=== PATIENT | female | born 1985 | race Caucasian/White ===

== ENCOUNTER 2019-12-24 05:47 | Observation (INO) ==
[2019-12-24] MEDS ORDERED: ONDANSETRON 4 MG/2 ML VIAL IV ONE ×3 (06:03→13:15)
[2019-12-24] MEDS ORDERED: LACTATED RINGERS 1,000 ML IV ONE (06:05)
[2019-12-24] MEDS ORDERED: diphenhydrAMINE 50 MG/ML VIAL IV ONE ×3 (06:45→13:15)
[2019-12-24] MEDS: HYDROmorphone 2 MG/ML VIAL IV PRN ×8 (06:50→22:00)
[2019-12-24 07:16] LABS: Basophils # (Auto) 0.04 K/mcL (0.00-0.30); Basophils % (Auto) 0.7 % (0.0-2.0); Eosinophils # (Auto) 0.17 K/mcL (0.00-0.70); Granulocytes % (Auto) 45.6 % (38.0-78.0); Hematocrit 46.6 % (34.1-44.9); Lymphocytes # (Auto) 2.59 K/mcL (1.50-4.80); Mean Cell Volume 90.1 fL (80.0-100.0); Mean Corpuscular HGB Conc 32.2 g/dL (31.0-36.0); Mean Platelet Volume 12.2 fL (7.4-10.4); Monocytes # (Auto) 0.33 K/mcL (0.10-0.90); Monocytes % (Auto) 5.7 % (1.0-12.0); Platelet Count 151 K/mcL (140-440); RBC 5.17 M/mcL (3.59-5.38); Red Cell Distribution Width 13.3 % (11.5-14.5); WBC 5.8 K/mcL (4.50-11.00)
--- NOTE | 2019-12-24 07:22 | Emergency Department Note ---
Abdominal Pain HPI - General Chief Complaint: Abdominal Pain Stated Complaint: nausea, vomiting, abd pain Time Seen by Provider: 12/24/19 07:09 Source: patient Mode of arrival: ambulatory Limitations: no limitations - History of Present Illness HPI Narrative: This patient has had right upper quadrant pain for 5 days associated with nausea and vomiting. She had an ultrasound here 2 days ago which showed cholelithiasis without evidence of cholecystitis. She was treated and improved little bit in the ER but despite that is continued to have pain nausea and vomiting. This patient also carries a diagnosis of acute intermittent porphyria. She says she was diagnosed with in 2013 but I do not see lab confirmation in our records. She also says her grandmother has had positive testing in the past. MD Complaint: abdominal pain Onset (ago): day(s) Consistency: constant Location: RUQ Quality: stabbing Radiation: back Improves with: nothing Worsens with: nothing - Related Data Previous Rx's Medication Instructions Recorded HYDROcodone/APAP 5/325MG [[place] 1 tab PO Q4HP PRN #10 tab 12/22/19 5-325Mg] Ondansetron [Zofran ODT] 4 mg SL Q4-6HP PRN #10 tab 12/22/19 Allergies Allergy/AdvReac Type Severity Reaction Status Date / Time azithromycin [AZITHROMYCIN] Allergy Severe Rash Verified 12/24/19 05:51 NSAIDS (Non-Steroidal Allergy Severe Rash Verified 12/24/19 05:51 Anti-Inflamma [NSAIDS] sumatriptan [SUMATRIPTAN] Allergy Severe Shortness Verified 12/24/19 05:51 of Breath codeine Allergy Unknown UNKNOWN Verified 12/24/19 05:51 tramadol Allergy Unknown Unknown Verified 12/24/19 05:51 droperidol [From INAPSINE] AdvReac Severe Anxiety/TAC Verified 12/24/19 05:51 HYCARDIA prochlorperazine AdvReac Intermediate ANXIOUS Verified 12/24/19 05:51 [PROCHLORPERAZINE] doxycycline AdvReac Mild Nausea Verified 12/24/19 05:51 hydrocodone [HYDROCODONE] AdvReac Mild NAUSEA Verified 12/24/19 05:51 morphine [MORPHINE] AdvReac Mild GI UPSET Verified 12/24/19 05:51 Review of Systems All systems ED: reviewed and negative except as stated. Abdominal Pain PMH - Past Medical History Medical history: Reports: kidney stones, migraine, other (Intermittent porphria) Psychiatric history: Reports: anxiety [employer] history: Reports: non-contributory Family history: Reports: other - Social History Smoking status: Never smoker Alcohol use: Reports: None Drug use: Reports: none Physical Exam Limitations: no limitations General appearance: alert Head: atraumatic Eye: Present: normal appearance ENT: Present: normal exam Neck: Present: normal inspection Chest: Present: normal inspection Respiratory: Present: normal lung sounds bilaterally Cardiovascular: Present: regular rate, normal rhythm, normal heart sounds Abdominal: Present: soft, tenderness. Absent: distention, guarding, rebound Abdominal tenderness: Present: RUQ, moderate Neurological: Present: alert Psychiatric: Present: normal affect Skin: Present: warm, dry Course Vital Signs Temperature 97.7 F 12/24/19 05:48 Pulse Rate 64 12/24/19 05:48 Respiratory Rate 20 12/24/19 05:48 Blood Pressure 140/66 12/24/19 05:48 Pulse Oximetry (%) 99 12/24/19 05:48 Temperature 97.7 F 12/24/19 05:48 Pulse Rate 80 12/24/19 08:28 Respiratory Rate 20 12/24/19 05:48 Blood Pressure 115/77 12/24/19 08:01 Pulse Oximetry (%) 100 12/24/19 08:28 Abdominal Pain - [facility] Narrative Medical decision making narrative: Patient's lab work is still unremarkable as far as white count and liver function and gallbladder testing. A flare of porphyria would explain her symptoms perhaps better than cholelithiasis. She has failed outpatient treatment and continues have nausea vomiting and pain. She should probably be admitted. Am currently waiting to talk to the hospitalist. I did talk with Dr. Cristobal and we will admit the patient his service and Dr. Gonsalez will see the patient as well. - Lab Data Lab results reviewed: Yes I reviewed the patient's lab results. Result diagrams: 12/24/19 06:21 12/24/19 07:25 Lab Results 12/24/19 12/24/19 12/24/19 Range/Units 06:21 06:21 06:28 WBC 5.8 (4.50-11.00) K/mcL RBC 5.17 (3.59-5.38) M/mcL Hgb 15.0 (11.2-15.7) g/dL Hct 46.6 H (34.1-44.9) % MCV 90.1 (80.0-100.0) fL MCH 29.0 (26.0-34.0) pg MCHC 32.2 (31.0-36.0) g/dL RDW 13.3 (11.5-14.5) % Plt Count 151 (140-440) K/mcL MPV 12.2 H (7.4-10.4) fL Gran % 45.6 (38.0-78.0) % Lymph % (Auto) 45.0 (15.5-49.0) % [place] % (Auto) 5.7 (1.0-12.0) % Eos % (Auto) 3.0 (0.0-7.0) % Baso % (Auto) 0.7 (0.0-2.0) % Gran # 2.62 (1.80-8.00) K/mcL Lymph # (Auto) 2.59 (1.50-4.80) K/mcL [place] # (Auto) 0.33 (0.10-0.90) K/mcL Eos # (Auto) 0.17 (0.00-0.70) K/mcL Baso # (Auto) 0.04 (0.00-0.30) K/mcL Sodium TNP Potassium TNP Chloride TNP Carbon Dioxide TNP Anion Gap TNP BUN TNP Creatinine TNP GFR Calculation TNP Glucose TNP Calcium TNP Total Bilirubin TNP AST TNP ALT TNP Alkaline Phosphatase TNP Total Protein TNP Albumin TNP Globulin TNP Albumin/Globulin Ratio TNP Lipase TNP Urine Color Yellow Urine Appearance Hazy Urine pH 5.0 (5.0-9.0) Ur Specific [place] 1.018 (1.000-1.035) Urine Protein Neg (NEG) mg/dL Urine Glucose (UA) Negative (NEG) mg/dL Urine Ketones Neg (NEG) mg/dL Urine Occult Blood 0.03 A (<0.03) mg/dL Urine Nitrate Neg (NEG) Urine Bilirubin Neg (NEG) mg/dL Urine Urobilinogen Neg (NEG) mg/dL Ur Leukocyte Esterase 75 A (NEG) /uL Urine RBC 1 (0-1) /hpf Urine WBC 9 H (0-4) /hpf Ur Squamous Epith Cells 7 H (0-4) /hpf Amorphous Crystals Few A (0) /hpf Urine Bacteria Many A (0) /hpf Hyaline Casts 3 H (0-2) /lpf Urine Mucus Few (0) /hpf Ur Culture Indicated? No 12/24/19 Range/Units 07:25 WBC (4.50-11.00) K/mcL RBC (3.59-5.38) M/mcL Hgb (11.2-15.7) g/dL Hct (34.1-44.9) % MCV (80.0-100.0) fL MCH (26.0-34.0) pg MCHC (31.0-36.0) g/dL RDW (11.5-14.5) % Plt Count (140-440) K/mcL MPV (7.4-10.4) fL Gran % (38.0-78.0) % Lymph % (Auto) (15.5-49.0) % [place] % (Auto) (1.0-12.0) % Eos % (Auto) (0.0-7.0) % Baso % (Auto) (0.0-2.0) % Gran # (1.80-8.00) K/mcL Lymph # (Auto) (1.50-4.80) K/mcL [place] # (Auto) (0.10-0.90) K/mcL Eos # (Auto) (0.00-0.70) K/mcL Baso # (Auto) (0.00-0.30) K/mcL Sodium 138 Potassium 3.9 Chloride 101 Carbon Dioxide 23 Anion Gap 14.0 BUN 14 Creatinine 0.7 GFR Calculation 115 Glucose 92 Calcium 9.1 Total Bilirubin 0.4 AST 16 ALT 13 Alkaline Phosphatase 36 L Total Protein 7.1 Albumin 4.2 Globulin 2.9 Albumin/Globulin Ratio 1.4 Lipase 18 Urine Color Urine Appearance Urine pH (5.0-9.0) Ur Specific [place] (1.000-1.035) Urine Protein (NEG) mg/dL Urine Glucose (UA) (NEG) mg/dL Urine Ketones (NEG) mg/dL Urine Occult Blood (<0.03) mg/dL Urine Nitrate (NEG) Urine Bilirubin (NEG) mg/dL Urine Urobilinogen (NEG) mg/dL Ur Leukocyte Esterase (NEG) /uL Urine RBC (0-1) /hpf Urine WBC (0-4) /hpf Ur Squamous Epith Cells (0-4) /hpf Amorphous Crystals (0) /hpf Urine Bacteria (0) /hpf Hyaline Casts (0-2) /lpf Urine Mucus (0) /hpf Ur Culture Indicated? Disposition Pt seen by [employer]/PA only: No Clinical Impression: Nausea & vomiting, Abdominal pain, History of porphyria Disposition: Xfer As Outpt/Obs ([facility]) Condition: Good Referrals: No,PCP [Primary Care Provider] - Time of Disposition: 08:57
[2019-12-24] MEDS ORDERED: METOCLOPRAMIDE 10 MG/2 ML VIAL IV ONE (07:32)
[2019-12-24 07:45] LABS: Appearance,Urine HAZY; Bacteria,Urine MANY /hpf (0); Bilirubin,Urine NEG (NEG); Color,Urine YELLOW; Culture Indicated,Urine NO; Glucose,Urine (UA) NEGATIVE (NEG); Ketones,Urine NEG (NEG); Leukocyte Esterase,Urine 75 /uL (NEG); Mucus,Urine FEW /hpf (0); Nitrate,Urine NEG (NEG); Protein,Urine NEG (NEG); Specific Gravity,Urine 1.018 (1.000-1.035); Urine Amorphous Crystals FEW /hpf (0); Urine Blood 0.03 mg/dL (<0.03); Urine Hyaline Cast 3 /lpf (0-2); Urine RBC 1 /hpf (0-1); Urine Squamous Epithelial Cell 7 /hpf (0-4); Urine WBC 9 /hpf (0-4); Urobilinogen,Urine NEG (NEG)
[2019-12-24 08:13] LABS: ALT/SGPT 13 U/l (0-40); AST/SGOT 16 U/l (0-37); Albumin 4.2 gm/dL (3.2-5.2); Albumin/Globulin Ratio 1.4 (1.0-2.3); Alkaline Phosphatase 36 U/L (39-117); Bilirubin,Total 0.4 mg/dL (0.0-1.0); Blood Urea Nitrogen 14 mg/dl (6-20); Calcium 9.1 mg/dl (8.6-10.4); Carbon Dioxide 23 mmol/L (22-30); Chloride 101 mmol/L (96-108); Globulin 2.9 gm/dL (2.2-3.7); Glomerular Filtration Rate 115; Glucose 92 mg/dL (70-105)
[2019-12-24] MEDS ORDERED: ONDANSETRON 4 MG/2 ML VIAL IV PRN ×2 (10:39→16:28)
[2019-12-24] MEDS ORDERED: HYDROmorphone 2 MG/ML VIAL IV PRN (10:40)
[2019-12-24] MEDS ORDERED: IPRATROPIUM/ALBUTEROL 3 ML AMPUL.NEB NEB PRN ×2 (12:41→14:32)
--- NOTE | 2019-12-24 12:42 | General Surg History&Physical ---
History of Present Illness Patient information: Note initiated : 12/24/19 at 12:40 pm Service Date, if different from initiated Date: [] Patient: Vick Herron a 34 y/o F admitted on 12/24/19 for nausea, vomiting, abd pain. Chief Complaint: [] HPI: Ms. Herron is a 34 year old F with history of recurrent right quadrant pain with nausea and vomiting since Friday. The pain has been constant since onset and has radiated through to her back on the right side. She has had other abdominal pain previously but not in the right upper quadrant or epigastric region and not associated with nausea and vomiting. Patient had upper abdominal ultrasound which confirms gallstones. This study was done on 22 December. She had continued symptoms since then. Her LFTs are normal and her urine is normal. Patient is counseled for laparoscopic cholecystectomy. Patient has a history of acute intermittent porphyria, but has not had a significant major tach documented. Her urines have been negative. She has had umbilical hernia surgery and hysterectomy without any exacerbation. Review of Systems All systems PM: reviewed and no additional remarkable complaints except as stated (except as noted above and in review of system below) - Constitutional as per HPI, headache(s) - Gastrointestinal abdominal pain, cramping, nausea, vomiting - Genitourinary Genitourinary: dysuria, flank pain, hematuria, urinary frequency, other (, history of UTIs associated with kidney stones) - Musculoskeletal back pain (, chronic thoracic and lumbar back pain) - Neurological no numbness, no tingling, no weakness - Endocrine as per HPI - Hematologic/Lymphatic no easy bleeding, no easy bruising, no lymphadenopathy Past History Past medical history: History of acute intermittent porphyria. History of kidney stones. He History chronic anxiety Past surgical history: Umbilical hernia surgery 2013. Hysterectomy 1999 Past family history: 4. Esophageal cancer Past social history: Denies tobacco use. Uses alcohol frequently. Denies drug use Medications and Allergies Home Medications Medication Instructions Recorded Confirmed Type HYDROcodone/APAP 5/325MG [[place] 1 tab PO Q4HP PRN #10 tab 12/22/19 12/24/19 Rx 5-325Mg] Ondansetron [Zofran ODT] 4 mg SL Q4-6HP PRN #10 tab 12/22/19 12/24/19 Rx Allergies Allergy/AdvReac Type Severity Reaction Status Date / Time sumatriptan [SUMATRIPTAN] Allergy Severe Shortness Verified 12/24/19 05:51 of Breath azithromycin [AZITHROMYCIN] Allergy Mild Rash Verified 12/24/19 12:46 NSAIDS (Non-Steroidal Allergy Mild Rash Verified 12/24/19 12:46 Anti-Inflamma [NSAIDS] codeine Allergy Unknown UNKNOWN Verified 12/24/19 05:51 tramadol Allergy Unknown Unknown Verified 12/24/19 05:51 droperidol [From INAPSINE] AdvReac Intermediate Anxiety/TAC Verified 12/24/19 12:46 HYCARDIA prochlorperazine AdvReac Intermediate ANXIOUS Verified 12/24/19 05:51 [PROCHLORPERAZINE] doxycycline AdvReac Mild Nausea Verified 12/24/19 05:51 hydrocodone [HYDROCODONE] AdvReac Mild NAUSEA Verified 12/24/19 05:51 morphine [MORPHINE] AdvReac Mild GI UPSET Verified 12/24/19 05:51 Exam Temp Pulse Resp BP Pulse Ox 97.7 F 65 20 109/71 100 12/24/19 11:11 12/24/19 11:11 12/24/19 11:11 12/24/19 11:11 12/24/19 11:11 - General physical appearance well developed, well nourished, no distress, moderate pain, other (patient is very anxious) - Eyes PERRL, normal ocular movement - ENT normal pinna, normal nares, normal mucosa, no hearing loss, no congestion - Head Head exam IM: Present: atraumatic, normocephalic - Neck no masses, no bruits, trachea midline, no lymphadenopathy, no venous distension - Cardiovascular Cardiovascular exam IM: Present: normal rate and rhythm, RRR, +S1, +S2. Absent: JVD, tachycardia - Respiratory normal expansion, normal respiratory effort, clear to percussion, clear to auscultation - Abdomen Abdomen: Present: soft, tender ( quadrant tenderness with guarding; epigastric), bowel sounds Hernia: Present: none - Genitourinary Present: normal external genitalia - Integumentary Present: no rash, no growths, no abnormal pigmentation - Neurologic Present: normal coordination, normal sensation - Musculoskeletal Present: normal gait, normal posture - Psychiatric Present: oriented to time, oriented to person, oriented to place, speech is normal, memory intact, other (chronic anxiety) Assessment and Plan (1) Cholelithiasis and cholecystitis without obstruction Patient is counseled for laparoscopic cholecystectomy and will be done later Status: Acute (2) Intermittent acute porphyria syndrome Patient has not had a recent attack and she's had surgery without difficulty in the past Status: Acute (3) Chronic low back pain Status: Acute
[2019-12-24] MEDS ORDERED: GLYCOPYRROLATE 0.2 MG/ML VIAL IV ONE (13:15)
[2019-12-24] MEDS ORDERED: KETAMINE 100 MG/ML ML IV ONE (13:15)
[2019-12-24] MEDS ORDERED: LIDOCAINE HCL/PF 100 MG/5 ML SYRINGE IV ONE (13:15)
[2019-12-24] MEDS ORDERED: FAMOTIDINE/PF 20 MG/2 ML VIAL IV ONE (13:15)
[2019-12-24] MEDS ORDERED: SUCCINYLCHOLINE 20 MG/ML ML IV ONE (13:15)
[2019-12-24] MEDS ORDERED: HYDROmorphone 2 MG/ML VIAL IV ONE (13:15)
[2019-12-24] MEDS ORDERED: ROCURONIUM 10 MG/ML ML IV ONE (13:15)
[2019-12-24] MEDS ORDERED: MIDAZOLAM 5 MG/5 ML VIAL IV ONE (13:15)
[2019-12-24] MEDS ORDERED: DEXAMETHASONE 10 MG/ML VIAL IV ONE (13:15)
[2019-12-24] MEDS ORDERED: fentaNYL 100 MCG/2 ML VIAL IV ONE (13:15)
[2019-12-24] MEDS ORDERED: MAGNESIUM SULFATE 2 GM/50 ML BAG IV ONE ×2 (13:15→13:51)
[2019-12-24] MEDS ORDERED: SUGAMMADEX SODIUM 200 MG/2 ML VIAL IV ONE (13:15)
[2019-12-24] MEDS ORDERED: PROPOFOL 200 MG/20 ML VIAL IV ONE (13:15)
[2019-12-24] MEDS ORDERED: ceFAZolin 2 GM in DEXTROSE 5% IN WATER 50 ML IV SCH ×2 (13:45→16:28)
[2019-12-24] MEDS ORDERED: NALOXONE HCL 0.4 MG/ML VIAL IV PRN (14:32)
[2019-12-24] MEDS ORDERED: MEPERIDINE 50 MG/ML INJECTION IM PRN (14:32)
[2019-12-24] MEDS ORDERED: PROMETHAZINE 25 MG/ML VIAL IV PRN (14:32)
[2019-12-24] MEDS ORDERED: BENZOCAINE/MENTHOL 1 LOZENGE PO PRN (14:32)
[2019-12-24] MEDS ORDERED: LACTATED RINGERS 250 ML IV PRN (14:32)
[2019-12-24] MEDS ORDERED: ACETAMINOPHEN 1,000 MG/100 ML BOTTLE IV ONE (14:32)
[2019-12-24] MEDS ORDERED: PROMETHAZINE 25 MG/ML VIAL IM PRN (14:32)
[2019-12-24] MEDS ORDERED: LABETALOL 5 MG/ML ML IV PRN (14:32)
[2019-12-24] MEDS ORDERED: METOPROLOL TARTRATE 5 MG/5 ML VIAL IV PRN (14:32)
[2019-12-24] MEDS ORDERED: FLUMAZENIL 0.1 MG/ML ML IV PRN (14:32)
[2019-12-24] MEDS ORDERED: METHOCARBAMOL 1,000 MG/10 ML VIAL IV PRN (14:32)
[2019-12-24] MEDS ORDERED: LACTATED RINGERS 1,000 ML IV SCH (14:45)
--- NOTE | 2019-12-24 14:50 | Brief Operative Note ---
Date of procedure: 12/24/19 Pre-op diagnosis: cholelithiasis with cholecystitis Post-op diagnosis: other (cholelithiasis with cholecystitis) Procedure: open cholecystectomy Grafts/Implants: No Anesthesia: GETA Findings: dilated gallbladder with stones Complications: none Surgeon: Any Cristobal Estimated blood loss (cc): 15 Specimens Removed/Pathology: other (gallbladder) Condition: stable Disposition: PACU
[2019-12-24] MEDS: fentaNYL 100 MCG/2 ML VIAL IV PRN ×10 (15:27→15:58)
[2019-12-24] MEDS: ONDANSETRON 4 MG/2 ML VIAL IV PRN (17:10)
[2019-12-24] MEDS: PANTOPRAZOLE 40 MG VIAL IV SCH (17:10)
[2019-12-24] MEDS: 0.9 % SODIUM CHLORIDE 1,000 ML IV SCH (17:12)
[2019-12-24] MEDS: LORazepam 1 MG TABLET PO PRN (19:37)
[2019-12-24] MEDS: ACETAMINOPHEN 1,000 MG/100 ML BOTTLE IV SCH (20:30)
[2019-12-24] MEDS: PROMETHAZINE 25 MG/ML VIAL IV PRN (22:58)
[2019-12-25] MEDS: HYDROmorphone 2 MG/ML VIAL IV PRN ×7 (01:22→19:00)
[2019-12-25] MEDS: LORazepam 1 MG TABLET PO PRN ×4 (01:23→21:25)
[2019-12-25] MEDS: 0.9 % SODIUM CHLORIDE 1,000 ML IV SCH (03:07)
[2019-12-25] MEDS: ACETAMINOPHEN 1,000 MG/100 ML BOTTLE IV SCH ×3 (03:07→16:31)
[2019-12-25] MEDS: ONDANSETRON 4 MG/2 ML VIAL IV PRN (05:57)
[2019-12-25] MEDS: PANTOPRAZOLE 40 MG VIAL IV SCH ×2 (07:43→16:21)
[2019-12-25 07:44] LABS: Bilirubin,Direct < 0.2 mg/dL (0.0-0.3); Chloride 99 mmol/L (96-108)
[2019-12-25 07:55] LABS: ALT/SGPT 24 U/l (0-40); AST/SGOT 29 U/l (0-37); Albumin 3.8 gm/dL (3.2-5.2); Albumin/Globulin Ratio 1.2 (1.0-2.3); Alkaline Phosphatase 36 U/L (39-117); Bilirubin,Total 0.5 mg/dL (0.0-1.0); Blood Urea Nitrogen 8 mg/dl (6-20); Calcium 8.6 mg/dl (8.6-10.4); Carbon Dioxide 17 mmol/L (22-30); Globulin 3.3 gm/dL (2.2-3.7); Glomerular Filtration Rate 121; Glucose 87 mg/dL (70-105); Lactate Dehydrogenase 218 U/L (94-250); Phosphorous 4.3 mg/dL (2.7-4.5); Triglycerides 66 mg/dl (<150); Uric Acid 3.6 mg/dL (2.5-8.0)
[2019-12-25] MEDS: PROMETHAZINE 25 MG/ML VIAL IV PRN ×3 (07:58→21:25)
[2019-12-25 08:00] LABS: Basophils # (Auto) 0.03 K/mcL (0.00-0.30); Basophils % (Auto) 0.3 % (0.0-2.0); Eosinophils # (Auto) 0 K/mcL (0.00-0.70); Eosinophils % (Auto) 0 % (0.0-7.0); Granulocytes % (Auto) 75.2 % (38.0-78.0); Hematocrit 40.5 % (34.1-44.9); Hemoglobin 12.9 g/dL (11.2-15.7); Lymphocytes # (Auto) 1.96 K/mcL (1.50-4.80); Lymphocytes % (Auto) 18.4 % (15.5-49.0); Mean Cell Volume 93.5 fL (80.0-100.0); Mean Corpuscular HGB Conc 31.9 g/dL (31.0-36.0); Mean Platelet Volume 11.4 fL (7.4-10.4); Monocytes # (Auto) 0.65 K/mcL (0.10-0.90); Monocytes % (Auto) 6.1 % (1.0-12.0); Platelet Count 177 K/mcL (140-440); RBC 4.33 M/mcL (3.59-5.38); Red Cell Distribution Width 13.3 % (11.5-14.5); WBC 10.7 K/mcL (4.50-11.00)
--- NOTE | 2019-12-25 11:46 | General Surgery Progress Note ---
Subjective Patient reports: feels better, still having pain, pain is less, tolerating liquids well, flatus, afebrile Narrative: Note initiated : 12/25/19 at 11:44 am Service Date, if different from initiated Date: [] Patient: Vick Herron 34 y/o F admitted on 12/24/19 for nausea, vomiting, abd pain. Chief Complaint: [patient states that she feels much better. Her incisional pain is better. She is able to tolerate diet without difficulty. She denies nausea. White blood count 10.7, hemoglobin 12.9, hematocrit 40.5, BUN 8, creatinine 0.6, LFTs normal.] Objective Temp Pulse Resp BP Pulse Ox 98.7 F 76 14 125/69 95 12/25/19 09:42 12/25/19 04:00 12/25/19 04:00 12/25/19 04:00 12/25/19 04:00 - Additional Data Intake & Output - Last 24 hours: Intake & Output 12/23/19 12/24/19 12/25/19 12/26/19 05:59 05:59 05:59 05:59 Intake Total 4292 100 Output Total 1405 550 Balance 2887 -450 Weight 150 lb 151 lb - General physical appearance moderate distress, moderate pain - Eyes PERRL, normal ocular movement - ENT normal pinna, normal nares, normal mucosa, no hearing loss, no congestion - Neck no masses, no bruits, trachea midline, no lymphadenopathy, no venous distension - Respiratory normal expansion, normal respiratory effort, clear to auscultation - Cardiovascular Cardiovascular exam: Present: normal rate and rhythm, RRR, +S1, +S2. Absent: JVD, tachycardia - Abdomen tender (moderately severe incisional tenderness), bowel sounds (present), surgical scars (none), masses (none), distended (. Mild distention) - Integumentary no rash, no growths, no abnormal pigmentation - Neurologic normal coordination, normal sensation - Musculoskeletal normal gait, normal posture - Psychiatric oriented to time, oriented to person, oriented to place, speech is normal, memory intact - Labs 12/25/19 05:58 12/25/19 05:58 Diabetes panel 12/25/19 Range/Units 05:58 Sodium 133 (133-145) mmol/L Potassium 4.7 (3.3-5.1) mmol/L Chloride 99 (96-108) mmol/L Carbon Dioxide 17 L (22-30) mmol/L BUN 8 (6-20) mg/dl Creatinine 0.6 (0.6-1.1) mg/dl Glucose 87 (70-105) mg/dL Calcium 8.6 (8.6-10.4) mg/dl AST 29 (0-37) U/l ALT 24 (0-40) U/l Alkaline Phosphatase 36 L (39-117) U/L Total Protein 7.1 (5.9-8.4) gm/dL Albumin 3.8 (3.2-5.2) gm/dL Triglycerides 66 (<150) mg/dl Calcium panel 12/25/19 Range/Units 05:58 Calcium 8.6 (8.6-10.4) mg/dl Phosphorus 4.3 (2.7-4.5) mg/dL Albumin 3.8 (3.2-5.2) gm/dL Pituitary panel 12/25/19 Range/Units 05:58 Sodium 133 (133-145) mmol/L Potassium 4.7 (3.3-5.1) mmol/L Chloride 99 (96-108) mmol/L Carbon Dioxide 17 L (22-30) mmol/L BUN 8 (6-20) mg/dl Creatinine 0.6 (0.6-1.1) mg/dl Glucose 87 (70-105) mg/dL Calcium 8.6 (8.6-10.4) mg/dl Adrenal panel 12/25/19 Range/Units 05:58 Sodium 133 (133-145) mmol/L Potassium 4.7 (3.3-5.1) mmol/L Chloride 99 (96-108) mmol/L Carbon Dioxide 17 L (22-30) mmol/L BUN 8 (6-20) mg/dl Creatinine 0.6 (0.6-1.1) mg/dl Glucose 87 (70-105) mg/dL Calcium 8.6 (8.6-10.4) mg/dl Total Bilirubin 0.5 (0.0-1.0) mg/dL AST 29 (0-37) U/l ALT 24 (0-40) U/l Alkaline Phosphatase 36 L (39-117) U/L Total Protein 7.1 (5.9-8.4) gm/dL Albumin 3.8 (3.2-5.2) gm/dL Assessment and Plan (1) Cholelithiasis and cholecystitis without obstruction Status: Resolved Assessment and plan: Saline lock IV. Regular diet. Trial of oral oxycodone. Probable discharge in the morning Current Visit: Yes (2) Intermittent acute porphyria syndrome Status: Acute Current Visit: Yes (3) Chronic low back pain Status: Acute Current Visit: Yes - Time Spent With Patient Total time spent is greater than 50% in coordination of care (as documented) at patient's floor/unit and/or counseling patient:
[2019-12-25] MEDS: oxyCODONE HCL 5 MG TABLET PO PRN ×3 (12:18→22:08)
[2019-12-25] MEDS ORDERED: diphenhydrAMINE 25 MG CAPSULE PO PRN (15:56)
[2019-12-25] MEDS: POLYETHYLENE GLYCOL 3350 17 GM PACKET PO SCH (21:24)
[2019-12-26] MEDS: HYDROmorphone 2 MG/ML VIAL IV PRN ×6 (01:36→13:35)
[2019-12-26] MEDS: LORazepam 1 MG TABLET PO PRN ×2 (01:37→11:41)
[2019-12-26] MEDS: oxyCODONE HCL 5 MG TABLET PO PRN ×3 (03:05→11:40)
[2019-12-26] MEDS: ONDANSETRON 4 MG/2 ML VIAL IV PRN (04:59)
[2019-12-26 06:47] LABS: Basophils # (Auto) 0.03 K/mcL (0.00-0.30); Basophils % (Auto) 0.5 % (0.0-2.0); Eosinophils # (Auto) 0.18 K/mcL (0.00-0.70); Eosinophils % (Auto) 3.1 % (0.0-7.0); Granulocytes % (Auto) 48.9 % (38.0-78.0); Hematocrit 36.8 % (34.1-44.9); Hemoglobin 11.9 g/dL (11.2-15.7); Lymphocytes % (Auto) 39.7 % (15.5-49.0); Mean Cell Volume 91.5 fL (80.0-100.0); Mean Corpuscular HGB Conc 32.3 g/dL (31.0-36.0); Mean Platelet Volume 11.3 fL (7.4-10.4); Monocytes # (Auto) 0.45 K/mcL (0.10-0.90); Monocytes % (Auto) 7.8 % (1.0-12.0); Platelet Count 158 K/mcL (140-440); RBC 4.02 M/mcL (3.59-5.38); Red Cell Distribution Width 13.6 % (11.5-14.5); WBC 5.8 K/mcL (4.50-11.00)
[2019-12-26 07:13] LABS: Bilirubin,Direct < 0.2 mg/dL (0.0-0.3); Chloride 105 mmol/L (96-108)
[2019-12-26] MEDS: PANTOPRAZOLE 40 MG VIAL IV SCH (07:13)
[2019-12-26 07:18] LABS: ALT/SGPT 17 U/l (0-40); AST/SGOT 25 U/l (0-37); Albumin 3.5 gm/dL (3.2-5.2); Albumin/Globulin Ratio 1.3 (1.0-2.3); Alkaline Phosphatase 31 U/L (39-117); Bilirubin,Total 0.3 mg/dL (0.0-1.0); Blood Urea Nitrogen 11 mg/dl (6-20); Calcium 8.2 mg/dl (8.6-10.4); Carbon Dioxide 21 mmol/L (22-30); Globulin 2.7 gm/dL (2.2-3.7); Glomerular Filtration Rate 121; Glucose 83 mg/dL (70-105); Lactate Dehydrogenase 197 U/L (94-250); Phosphorous 3.6 mg/dL (2.7-4.5); Triglycerides 75 mg/dl (<150); Uric Acid 3.9 mg/dL (2.5-8.0)
[2019-12-26] MEDS: PROMETHAZINE 25 MG/ML VIAL IV PRN (09:36)
[2019-12-26] MEDS: POLYETHYLENE GLYCOL 3350 17 GM PACKET PO SCH (09:36)
--- NOTE | 2019-12-26 12:17 | Discharge Summary ---
Providers - Providers Patient information: Note initiated : 12/26/19 at 12:12 pm Service Date, if different from initiated Date: [] Patient: Vick Herron 34 y/o F admitted on 12/24/19 for nausea, vomiting, abd pain. Chief Complaint: [] Date of admission: 12/24/19 Discharge date: 12/26/19 Attending physician: Any Cristobal Hospitalization Hospital Course: 34-year-old fe with a 72 hour history of right subcostal and epigastric pain with associated nausea, vomiting. She was seen in the emergency room on December With similar symptoms and was treated as an outpatient. She returned with worsening pain, nausea, vomiting. Ultrasound confirmed cholelithiasis. She had right subcostal pain with guarding and epigastric pain. Patient is admitted. She was counseled for cholecystectomy. During cholecystectomy. I was unable to gain access to the peritoneal cavity above or below the umbilicus due to previous mesh repair of incisional hernia. A mini laparotomy was done in the right subcostal region with open cholecystectomy performed. The procedure was carried out without difficulty. In the postoperative period she had severe abdominal pain control. Her Discharge was delayed. Today she still has moderate pain but should be able to manage with oral analgesics and antiemetics. She is tolerating diet at this time and is stable for discharge. The patient has history of acute intermittent porphyria. She did not have any signs or symptoms of exacerbation during this hospitalization Discharge diagnosis: cholelithiasis with cholecystitis Secondary discharge diagnosis: Acute intermittent porphyria. Chronic anxiety disorder Reason for admission: abdominal pain, nausea and vomiting Procedures: Open cholecystectomy. 24 December 2019 Pertinent studies/significant findings: Upper abdominal ultrasound Complications: None Exam Temp Pulse Resp BP Pulse Ox 98.2 F 84 26 H 126/81 100 12/26/19 07:35 12/26/19 07:35 12/26/19 07:35 12/26/19 07:35 12/26/19 07:35 - General physical appearance well developed, well nourished, moderate distress, moderate pain - Eyes PERRL, normal ocular movement. negative: icteric - ENT normal pinna, normal nares, normal mucosa, no hearing loss, no congestion - Head Head exam IM: Present: atraumatic, normocephalic - Neck no masses, no bruits, trachea midline, no lymphadenopathy, no venous distension - Cardiovascular Cardiovascular exam IM: Present: normal rate and rhythm - Respiratory normal expansion, normal respiratory effort, clear to percussion, clear to auscultation - Abdomen Abdomen: Present: soft, tender (moderately severe tenderness of her incisions; no distention; good active bowel sounds), bowel sounds Hernia: Present: none - Genitourinary Present: normal external genitalia - Rectum Rectum: Present: normal sphincter tone, no hemorrhoids, no tenderness, no masses, no bleeding - Integumentary Present: no rash, no growths, no abnormal pigmentation - Neurologic Present: normal coordination, normal sensation - Musculoskeletal Present: normal gait, normal posture - Psychiatric Present: oriented to time, oriented to person, oriented to place, speech is normal, memory intact, other (, severe anxiety) Discharge Plan - Patient/Caregiver Discharge Instructions Activity: increase activity as tolerated Diet: Low Fat Additional Instructions: Patient will call office tomorrow to verify appointment in 2 weeks Prescriptions: LORazepam [Ativan] 0.5 mg PO Q6H PRN #60 tablet PRN Reason: Anxiety Transmission Status: Received by [id number] HYDROcodone/APAP 10/325MG [[place] 10-325Mg] 1 tab PO Q4H PRN #60 tablet PRN Reason: Pain Transmission Status: Received by [facility] Promethazine [Phenergan] 25 mg PO Q4HP PRN #60 tab PRN Reason: Nausea Transmission Status: Pending to [facility] - Follow up Plan Follow up with: Any Cristobal MD [Physician] - Disposition: Home, Self-Care Prognosis: Good Rehab Potential: Good I certify that the patient requires SNF services.: No Overall status at discharge: patient is progressing back to baseline Pending Studies Resuscitation Status Full Code Diet Regular Diet Start Sat Dec 25 114 Diphenhydramine HCl (Benadryl) 50 mg PO Q4HP PRN PRN Reason: Allergic Symptoms Last Admin: 12/25/19 16:20 Dose: 50 mg Documented by: ALEX Hydromorphone HCl (Dilaudid) 0.5 mg IV Q1-2HP PRN; Protocol PRN Reason: Per Pain Protocol Last Admin: 12/26/19 11:27 Dose: 0.5 mg Documented by: Admin: 12/26/19 09:24 Dose: 0.5 mg Documented by: Admin: 12/26/19 07:20 Dose: 0.5 mg Documented by: Admin: 12/26/19 04:55 Dose: 0.5 mg Documented by: Admin: 12/26/19 01:36 Dose: 0.5 mg Documented by: Admin: 12/25/19 19:00 Dose: 0.5 mg Documented by: Admin: 12/25/19 15:15 Dose: 0.5 mg Documented by: Admin: 12/25/19 12:55 Dose: 0.5 mg Documented by: Admin: 12/25/19 10:39 Dose: 0.5 mg Documented by: Admin: 12/25/19 07:59 Dose: 0.5 mg Documented by: Admin: 12/25/19 05:57 Dose: 0.5 mg Documented by: Admin: 12/25/19 01:22 Dose: 0.5 mg Documented by: Admin: 12/24/19 22:00 Dose: 0.5 mg Documented by: Admin: 12/24/19 20:22 Dose: 0.5 mg Documented by: Admin: 12/24/19 18:47 Dose: 0.5 mg Documented by: Admin: 12/24/19 17:11 Dose: 0.5 mg Documented by: [email or web address] Lorazepam (Ativan) 1 mg PO Q4HP PRN PRN Reason: ANXIETY/SEDATION Last Admin: 12/26/19 11:41 Dose: 1 mg Documented by: Admin: 12/26/19 01:37 Dose: 1 mg Documented by: Admin: 12/25/19 21:25 Dose: 1 mg Documented by: Admin: 12/25/19 15:14 Dose: 1 mg Documented by: Admin: 12/25/19 07:59 Dose: 1 mg Documented by: Admin: 12/25/19 01:23 Dose: 1 mg Documented by: Admin: 12/24/19 19:37 Dose: 1 mg Documented by: JONH Ondansetron HCl (Zofran) 4 mg IV Q4-6HP PRN PRN Reason: Nausea And Vomiting Last Admin: 12/26/19 04:59 Dose: 4 mg Documented by: Admin: 12/25/19 05:57 Dose: 4 mg Documented by: Admin: 12/24/19 17:10 Dose: 4 mg Documented by: [email or web address] Oxycodone HCl (Roxicodone) 10 mg PO Q4HP PRN; Protocol PRN Reason: Per Pain Protocol Last Admin: 12/26/19 11:40 Dose: 10 mg Documented by: Admin: 12/26/19 07:12 Dose: 10 mg Documented by: Admin: 12/26/19 03:05 Dose: 10 mg Documented by: Admin: 12/25/19 22:08 Dose: 10 mg Documented by: Admin: 12/25/19 17:58 Dose: 10 mg Documented by: Admin: 12/25/19 12:18 Dose: 10 mg Documented by: ALEX [facility]op[facility] Last Admin: 12/26/19 07:13 Dose: 40 mg Documented by: Admin: 12/25/19 16:21 Dose: 40 mg Documented by: Admin: 12/25/19 07:43 Dose: 40 mg Documented by: Admin: 12/24/19 17:10 Dose: 40 mg Documented by: [email or web address] Polyethylene Glycol (Miralax) 17 gm PO BID [facility] Last Admin: 12/26/19 09:36 Dose: 17 gm Documented by: Admin: 12/25/19 21:24 Dose: 17 gm Documented by: MAXINE Promethazine HCl (Phenergan) 12.5 mg IV Q4HP PRN; Protocol PRN Reason: Nausea/Vomiting Last Admin: 12/26/19 09:36 Dose: 12.5 mg Documented by: Admin: 12/25/19 21:25 Dose: 12.5 mg Documented by: Admin: 12/25/19 15:14 Dose: 12.5 mg Documented by: Admin: 12/25/19 07:58 Dose: 12.5 mg Documented by: Admin: 12/24/19 22:58 Dose: 12.5 mg Documented by: JONH Shift Summary 12/26/19 05:15 Shift Summary by Maggie Chaves The patient is alert and oriented times four and up ad juan in her room, VSS, room air, ambulated in the hallways and is passing flatus. Tolerated PO and a regular diet well last evening. Was medicated for pain with Oxycodone 10 mg, Dilaudid 0.5 mg (breakthrough) and Lorazepam 1 mg twice and Phenergan once for nausea. She has a history of anxiety and porphyria with a Portacath not accessed to her left chest. A new 20 gauge SL to her left upper forearm/axilla area and her two prior SL sites were discontinued. She is using a splint pillow and her dressings sites to her abdomen lap sites times three are WDL with very scant bloody drainage. Plan is to discharge home today and will update shift report at bedside. Initialized on 12/26/19 05:15 - END OF NOTE
--- NOTE | 2019-12-27 11:54 | Surgical Pathology Report ---
HISTOLOGY SPECIMEN MICROSCOPIC DIAGNOSIS GALLBLADDER, CHOLECYSTECTOMY: -- CHRONIC CHOLECYSTITIS WITH CHOLELITHIASIS. (RLF:adj) CLINICAL HISTORY Nausea; vomiting; abdominal pain. GROSS DESCRIPTION Received in formalin designated gallbladder per requisition, is a lott-ferraro gallbladder. It is 7.5 x 3.2 x 1.9 cm. There are no clips on the duct. The mucosa is pink-ferraro and rough-surfaced. The wall is up to 0.2 cm. There are multiple stones identified from less than 0.1 to 0.5 cm. Hot Wire Glass Tube Cutter sections are submitted in one cassette. (SCB:adj) Electronically Signed by: Josi Chapman M.D.
--- NOTE | 2019-12-28 12:48 | Operative Note ---
DATE OF OPERATION: 12/24/2019 PREOPERATIVE DIAGNOSIS: Cholelithiasis with cholecystitis. POSTOPERATIVE DIAGNOSIS: Cholelithiasis with cholecystitis. PROCEDURE: Open cholecystectomy. SURGEON: Any Cristobal M.D. FINDINGS: Dilated gallbladder with stones; mesh graft repair of umbilical hernia. DESCRIPTION OF PROCEDURE: Under general anesthesia, the patient's abdomen was prepped and draped in a sterile field. A time-out procedure was carried out as per protocol. A supraumbilical incision was made and an attempt was made to place a Veress needle. I extended the incision almost longterm up and could not find an open place for placement of the Veress needle because of apparent mesh that had placed laparoscopically. I then explored the area below the umbilicus and found some very thick indurated mesh. Since I was unsure of the proximity of the mesh to underlying viscera, it was elected to do a right subcostal incision. A limited minilaparotomy was done in the right subcostal area. It was extended through the rectus muscle and fascia. The upper abdomen was packed off. The gallbladder was grasped and using electrocautery was from the subhepatic space down to the infundibulum. The cystic artery branches were isolated, clipped with multiple clips and divided. The cystic duct was clamped at its junction with the gallbladder and divided. The cystic duct was clipped with five clips. Irrigation was carried out. Hemostasis in the bed was adequate. Sponge, needle, instrument and blade counts were correct. The fascial layers were closed with running 0 Prolene. Subcutaneous tissue was closed with 2-0 Monocryl. Skin was closed with aida. The incisions above and below the umbilicus were closed with aida. The patient tolerated the procedure well. Tegaderm dressings were placed. She was awakened and transferred to a bed and taken to the postanesthetic care unit in stable, satisfactory condition. LCS:shawn Job ID: [id number] Doc ID: [id number] Any Cristobal M.D.
== END 2019-12-26 13:50 | disposition home or self-care (01) ==
LOC: ED 05:47 → MEDSUR 05:47
PROVIDERS: ADMIT Family Medicine Adult Medicine; ATTEND Family Medicine Adult Medicine